=== PATIENT | female | born 1960 | race Caucasian/White ===

== ENCOUNTER → 2017-07-31 | Outpatient (CLI) | payer BC ==
--- NOTE | 2017-08-01 09:35 | CT ---
EXAMINATION TYPE: CT soft tissue neck w con DATE OF EXAM: 07/31/2017 HISTORY: Neck pain. COMPARISON: NONE CT DLP: 671 mGycm. Automated Exposure Control for Dose Reduction was Utilized. TECHNIQUE: CT scan of the neck is performed with IV Contrast, patient injected with 100ml mL of Omni paque 300, axial images are obtained, coronal and sagittal reformatted images are reviewed. FINDINGS: Airway: The false vocal cords appear abnormally thickened although symmetric. The true vocal cords ar e unremarkable. The piriform sinuses, vallecula, epiglottis, and uvula are unremarkable. The nasophar yngeal airway, supraglottic airway and infraglottic airway are patent. Prevertebral soft tissues are unremarkable with no focal fluid collection. Parotid/submandibular glands: Parotid and submandibular glands are symmetric although there is bilate ral fatty replacement/atrophy of the parotid glands nearly diffusely. Carotid/Vascular Structures: Minimal noncalcific atheromatous plaquing is seen of the left common car otid artery with less than 50% stenosis (nonhemodynamically significant. Carotid and vertebral arteri es are patent with no hemodynamically significant stenosis. Osseous Structures: Minimal mucosal thickening is seen within the right maxillary sinus. Remaining vi sualized paranasal sinuses and mastoid air cells are well aerated. Mild multilevel degenerative horan es of the cervical spine are seen. There is a grade 1 retrolisthesis of C5 on C6 and C6 on C7 with sm all posterior disc osteophyte complexes grating mild spinal canal stenosis. Lung apices demonstrate m inimal biapical pleural thickening but are otherwise unremarkable. Other: Scattered nonenlarged cervical chain lymph nodes are seen with the largest on the left in the submandibular region measuring 8 mm in short axis other than the jugulodigastric nodes. These all rem ain nonenlarged. IMPRESSION: 1. Symmetric thickening of the false vocal cords without focal mass or nodule. Direct visualization c ould be considered for further evaluation. No thickening of the true vocal cords or airway compromise . 2. Symmetric atrophy/fatty replacement of the parotid glands out of proportion for the patient's age. This can be seen in Sjogren's syndrome, chronic obstruction or other etiologies.
== END | disposition home or self-care (01) ==
LOC: RADCTMAIN 16:31
PROVIDERS: ATTEND Family Medicine
DX: R22.1 Localized swelling, mass and lump, neck (principal)
CPT/HCPCS: 70491; Q9967

== ENCOUNTER → 2023-03-23 | Outpatient (CLI) | payer BC, OTHER ==
--- NOTE | 2023-03-23 09:19 | CT ---
EXAMINATION TYPE: CT wrist RT wo con DATE OF EXAM: 03/23/2023 COMPARISON: None HISTORY: fx of radius CT DLP: [address] of the right wrist with reconstruction imaging. TECHNIQUE: Unenhanced CT of the right wrist was performed with bone and soft tissue window settings s ubmitted in the axial coronal and sagittal planes. At a separate workstation 3-D TR imaging was obta ined. FINDINGS: There is comminuted and partially impacted distal radial fracture with intra-articular extension. 2 m m dorsal displacement of the dorsal fracture fragment. Tiny ossific density is noted on the lateral p rojection within the dorsal carpal space and could reflect a tiny chip or avulsion fracture site of o rigin indeterminate. There is surrounding soft tissue swelling noted. No additional fractures are see n within the field of view. IMPRESSION: 1. There is comminuted and partially impacted distal radial fracture with intra-articular extension.
== END | disposition home or self-care (01) ==
LOC: RADCTMAIN 08:09
PROVIDERS: ATTEND Orthopaedic Surgery Hand Surgery
DX: S52.571A Other intraarticular fracture of lower end of right radius, initial encounter for closed fracture (principal); M25.531 Pain in right wrist

== ENCOUNTER → 2023-07-21 | Outpatient (CLI) | payer BC ==
--- NOTE | 2023-07-23 14:03 | PE ---
EXAMINATION TYPE: PET CT fusion skull to thigh DATE OF EXAM: 07/21/2023 COMPARISON: 07/31/2017 CT soft tissue neck Prior PET/CT: None at this location HISTORY: Lung cancer , head and neck neoplasm TECHNIQUE: Following the intravenous administration of 9.84 mCi of F-18 FDG, whole body images are p erformed from the skull base to the midthigh. Images are reviewed on the computer in the coronal, ax ial, and sagittal planes. Reconstructed rotating images are created on independent workstation and r eviewed on the computer. A localization and attenuation correction CT is performed in conjunction w ith the PET scan. DLP: 466.29 mGycm SCAN: Initial Blood glucose: 92 mg/dL Average Mediastinum SUV: 1.83 Average Liver SUV: 2.11 FINDINGS: NECK: There is intense uptake in the hypopharynx. Hypopharynx is asymmetric. SUV measures 18.25. There is a focus of radiotracer within the left jugulodigastric region. Intense uptake measuring SUV 12.98 is present. An additional more superior area of uptake is present in the jugulodigastric region , image 25, SUV 4.35. There is increased uptake adjacent to the left mandible. This may extend towards the hard palate. There is intense uptake within the posterior lateral focal cord level more intense on the right than the left. On the right the SUV level is 8.48. THORAX: There is focal uptake within the posterior left lung, image 88, SUV 6.13. Milder intermediate signal is within the posterior right lung consolidation with slightly elevated ROMERO V of 3.7. Inflammatory uptake appears to be adjacent to the tracheostomy site. ABDOMEN: There is a small focus of radiotracer within the hepatic flexure of the colon, image 138, ROMERO V 8.05. This is nonspecific. Neoplasm however is not excluded. PELVIS: No abnormal uptake OSSEOUS STRUCTURES: No abnormal uptake LOCALIZATION CT: There is irregular thickening through the tonsillar pillars and hypopharynx correspo nding to the uptake on PET scan. Small lymph nodes are in the neck bilaterally. COMPARISON: No recent comparison IMPRESSION: 1. Uptake within the posterior left lung with milder uptake within the consolidation of the left lung . Findings can be compatible with primary or metastatic cancer. 2. Intense uptake within the hypopharynx. Findings compatible with neoplasm. 3. At least 2 foci of increased uptake within the jugulodigastric region left neck suspicious for met astatic disease.
== END | disposition home or self-care (01) ==
LOC: RADPETMAIN 13:22
PROVIDERS: ATTEND Otolaryngology
DX: C32.8 Malignant neoplasm of overlapping sites of larynx (principal); C34.90 Malignant neoplasm of unspecified part of unspecified bronchus or lung; C76.0 Malignant neoplasm of head, face and neck
CPT/HCPCS: 78815; A9552

== ENCOUNTER → 2023-12-27 | Outpatient (CLI) | payer BC ==
--- NOTE | 2023-12-27 21:39 | FL ---
EXAMINATION TYPE: FL barium swallow w video DATE OF EXAM: 12/27/2023 CLINICAL HISTORY: 63-year-old female R13.10, C230.9, laryngeal cancer, Dysphagia. TECHNIQUE: Deglutition study is performed utilizing thin liquid barium, barium thick pudding, and ba rium coated cracker. Total fluoroscopy time 1 minute 3 seconds. Total images: None. Real-time fluoroscopy support was provided to speech pathology. Total DAP: 15 mGycm2. COMPARISON: None. FINDINGS: There is diminished epiglottic inversion. Tracheostomy cannula is present. Otherwise, the oral and pharyngeal phases show satisfactory initiation and propagation with all modal ities tested. Normal mastication is seen with solid modalities tested though the patient is edentulo us. There is no evidence of penetration or aspiration with any modality tested. No significant phar yngeal residue was appreciated. IMPRESSION: No penetration or aspiration. Tracheostomy cannula. Some reduced epiglottic inversion. Please refer to speech therapist notes for further details if necessary.
== END | disposition home or self-care (01) ==
LOC: RADFLMAIN 10:55
PROVIDERS: ATTEND Otolaryngology
DX: C32.9 Malignant neoplasm of larynx, unspecified (principal); R13.10 Dysphagia, unspecified
CPT/HCPCS: 74230

== ENCOUNTER → 2024-01-25 | Outpatient (CLI) | payer BC ==
--- NOTE | 2024-02-22 10:36 | PE ---
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 Images are reviewed on the computer in the coronal, axial, and sagittal planes. Reconstructed rotating images are created on independent workstation and reviewed on the computer. A non-contrast CT is performed in conjunction with the PET scan. Glucose level 91 mg/dL CT DLP: 626 mGycm, Automated exposure control for dose reduction was used. COMPARISON: CT None, PET/CT 07/21/2023, MRI: None FINDINGS: Mediastinal SUV mean is 2.0. Hepatic parenchyma SUV mean is 2.3. SKULL BASE AND NECK: * Decrease in uptake at the level of the larynx/vocal cords max SUV 12.2 previously 18.6. * Decrease in size and FDG activity of left neck lymph node now poorly visualized with FDG levels be low background. previously max SUV 13.8. * Uptake within the oropharynx and tongue max SUV 7.1, 16.9. * CHEST, MEDIASTINUM, AND HILAR REGION: New right lower lobe nodule measuring 28 x 18 mm max SUV 14.4. ABDOMEN AND PELVIS: * No suspicious radiotracer activity. * Nodular uptake of left adrenal gland without increased metabolic activity. MUSCULOSKELETAL STRUCTURES: * No suspicious radiotracer activity. * Focal uptake uptake along the right lateral thigh near the right hip arthroplasty measuring 21 x 1 7 mm with max SUV 5.[address]: Tracheostomy cannula with tip terminating in appropriate position. Moderate atherosclerosis of the arterial vasculature. Stable nodular thickening of the left adrenal gland. Large amount stool in the colon. Right hip arthroplasty appears intact. IMPRESSION: 1. Right lower lobe pulmonary nodule with increased FDG activity concerning for metastatic disease m easuring 28 x 18 mm. A new from prior. 2. Positive response to therapy in the neck at the level of the larynx and oropharynx with decreased FDG activity compared to prior, additionally there is decrease in size and FDG activity of left neck lymph node. Left neck lymph node no longer visualized. 3. Nonspecific uptake along the lateral aspect of the right thigh surgical bed. Findings could repre sent infectious/cavitary process and less likely metastatic disease.
== END | disposition home or self-care (01) ==
LOC: RADPETMAIN 10:45
PROVIDERS: ATTEND Internal Medicine Hematology & Oncology
DX: C76.0 Malignant neoplasm of head, face and neck (principal); R91.1 Solitary pulmonary nodule
CPT/HCPCS: 78815; A9552

== ENCOUNTER → 2024-02-24 | Outpatient (CLI) | payer BC ==
--- NOTE | 2024-03-11 21:58 | MR ---
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 COMPARISON: 01/30/2024 TECHNIQUE: Multi planar, multi sequence imaging was performed of the neck soft tissues. MR contrast: IV Contrast: 6.5 cc Gadavist FINDINGS: No focal asymmetric uptake within the level of the larynx. Tracheostomy cannula noted. Fin dings compatible with prior PET/CT images. No suspicious enhancement filling visualized at the oropha rynx. Several nonenlarged anterior chain lymph nodes are identified. There is no evidence to suggest a soft tissue mass. High T2 signal within the mastoid air cells right greater than left. The cervical vertebral bodies have preserved heights and alignment. Multilevel disc desiccation and anterior osteophytosis are present. The cervical spinal cord demonstrates a normal appearance. IMPRESSION: 1. Motion limited exam. No suspicious enhancement within the larynx. Findings compatible with prior PET/CT. She noted on prior PET/CT the whole body images demonstrate misregistration artifact with the patient moving her neck. On dedicated small [id number] head and neck 2. PET/CT images the uptake within the larynx appears physiologic without misregistration artifact. Continued surveillance with PET/CTs recommended. No lymphadenopathy identified. 3. Trace bilateral mastoid air cell effusions. [facility], , 03/11/2024 9:56 PM
== END | disposition home or self-care (01) ==
LOC: RADMRIMAIN 14:27
PROVIDERS: ATTEND Otolaryngology
DX: C32.9 Malignant neoplasm of larynx, unspecified
CPT/HCPCS: 70543

== ENCOUNTER → 2024-03-04 | Outpatient (CLI) | payer BC ==
--- NOTE | 2024-03-04 18:05 | CT ---
EXAMINATION TYPE: CT Chest wo ION protocol DATE OF EXAM: 03/04/2024 COMPARISON: PET CT 01/25/2024, 07/21/2023, MR neck 02/24/2024, CT abdomen and pelvis 10/01/2010. HISTORY: Abnormal findings right lung on prior exam CT DLP: 546 mGycm. Automated Exposure Control for Dose Reduction was Utilized. TECHNIQUE: CT scan of the thorax is performed without IV contrast. FINDINGS: LUNGS: There is no pleural effusion or pneumothorax seen. Increased size of spiculated right lower lo be pulmonary mass measuring 3.1 x 2.7 cm, previously 2.8 x 1.8 cm (series 4, which started 39). Demon strates linear extension to the pleural base. A right lower lobe bronchus terminates at the mass. Thi s is FDG avid on prior PET/CT. No other definitive suspicious pulmonary nodules identified. Linear sc arring and/or atelectasis within the left lung base. Punctate calcified granuloma along the right min or fissure. Tracheostomy cannula in appropriate position. MEDIASTINUM: Lack of IV contrast is noted to limit evaluation for mediastinal and especially hilar ad enopathy. There are no definitive greater than 1 cm hilar or mediastinal lymph nodes. Mild atheroscle rotic calcification of the aorta and its branches. Moderate coronary arterial calcification calcifica tions. No cardiomegaly or pericardial effusion is seen. OTHER: Similar stranding changes identified within the anterior lower neck soft tissues at the level of the vocal cords. Nonobstructive right renal 3 mm calculus. Stable thickening of the left adrenal g land with a 1.2 cm nodule identified which is likely benign due to stability from 2010. No aggressive osseous lesion. IMPRESSION: Increased size of right lower lobe spiculated 3.1 cm pulmonary mass. Highly suspicious for metastasis versus primary lung cancer until proven otherwise. [facility], , 03/04/2024 6:02 PM
== END | disposition home or self-care (01) ==
LOC: RADCTMAIN 15:32
PROVIDERS: ATTEND Internal Medicine Critical Care Medicine
DX: R91.8 Other nonspecific abnormal finding of lung field
CPT/HCPCS: 71250

== ENCOUNTER 2024-03-14 13:04 | Day surgery (SDC) | payer BC ==
[2024-03-12 15:44] VITALS: BMI 26.2
[~2024-03-14 13:04] MED LIST: HYDROmorphone 0.5 MG/0.5 ML SYRINGE IVP PRN; LACTATED RINGERS 1,000 ML IV SCH; LIDOCAINE 1% (10MG/ML) FOR IV START INTRADERMA PRN; MIDAZOLAM 2 MG/2 ML VIAL IV PRN; fentaNYL (PF) 50 MCG/ML 2 ML AMP IVP PRN
[2024-03-14 13:49] VITALS: TEMP 97
[2024-03-14] MEDS: LACTATED RINGERS 1,000 ML IV SCH (14:01)
[2024-03-14] MEDS: DEXAMETHASONE SOD PHOSPHATE 4 MG/ML 1 ML VIAL IV ONE (14:06)
[2024-03-14] MEDS: ONDANSETRON 4 MG/2 ML VIAL IVP ONE (14:06)
[2024-03-14] MEDS ORDERED: ROCURONIUM 10 MG/ML (5 ML VIAL) IV ONE (14:29)
[2024-03-14] MEDS ORDERED: PROPOFOL 10 MG/ML 20 ML VIAL IV ONE (14:29)
[2024-03-14] MEDS ORDERED: MIDAZOLAM 2 MG/2 ML VIAL ONE (14:29)
[2024-03-14] MEDS ORDERED: LIDOCAINE 1% INJ 10MG/ML (20 ML MDV) ONE (14:29)
[2024-03-14] MEDS ORDERED: GLYCOPYRROLATE 0.2 MG/ML 2 ML VIAL ONE (14:29)
[2024-03-14] MEDS ORDERED: NEOSTIGMINE 1 MG/ML 10 ML VIAL ONE (14:29)
[2024-03-14] MEDS ORDERED: fentaNYL (PF) 50 MCG/ML 2 ML AMP ONE (14:29)
--- NOTE | 2024-03-14 15:48 | P.PCN ---
Date of Procedure: 03/14/24 Description of Procedure: Operative Findings: Preoperative Diagnosis: Right lower lobe mass, 18 x 28 mm in size, PET avid Squamous cell carcinoma of the larynx, status post tracheostomy tube insertion Postoperative Diagnosis: Right lower lobe mass History of squamous cell carcinoma of the larynx, the patient is status post tracheostomy tube insertion Procedure(s) Performed: Flexible bronchoscopy Removal of tracheostomy tube, endotracheal intubation, reinsertion of the tracheostomy tube Robotic-assisted bronchoscopy and addition to radial ultrasound evaluation of the right lower lobe lung mass Robotic-assisted transbronchial needle aspirate, transbronchial biopsies, transbronchial brushing of the right upper lobe opacity in addition to a bronchioloalveolar lavage Anesthesia: TEA Surgeon: Je Green Estimated Blood Loss (ml): 0 Pathology: other Condition: stable Disposition: same day Operative Findings: A physical exam was performed. Informed consent was obtained from the patient after explaining all the risks (pneumothorax, life threatening bleeding, infection and adverse effects due to medications), benefits and alternatives to the procedure which the patient appeared to understand and so stated. The patient was connected to the monitoring devices. General anesthesia was induced and the patient was initially ventilated through tracheostomy tube by anesthesia. A final timeout was performed and the procedure confirmed by the attending bronchoscopist. The patient was subsequently intubated by #7.5 ET tube. The tracheostomy tube was gradually removed as the patient was being intu bated maintaining adequate oxygenation and ventilation. The orotracheal tube was secured in place. The bronchoscope was inserted and the airway examined. Airway examination was essentially within normal limits. The flexible bronchoscope was removed and the robotic bronchoscope was inserted. Registration was completed. I next guided the robotic bronchoscope using the navigation system into the right lower lobe posterior segment. Once in proper position, the bronchoscope was frozen. The radial EBUS probe was placed through the bronchoscope and confirmed abnormal u/s images vs normal lung. A needle was placed through the working channel and under fluoroscopic guidance, we sampled the area twice. We then used a cloud biopsy pattern with ultrasound confirmation for 1 additional passes with the needle. U/S evaluation was then used to reconfirm location. Forceps were next introduced through working channel and extended the appropriate distance and 3 transbronchial biopsies were performed using fluoroscopic guidance. The u/s probe was then reinserted to confirm location. When confirmed this process was repeated for a total of 8-10 transbronchial biopsies. Following that, under fluoroscopic guidance, a brush was directed to the right lower lobe. Under direct visualization, endobronchial brushing of the right lower lobe mass was done without any complications. 40ml of saline was then instilled into the area of the lesion. A total of 10 cc of bloody aspirate was obtained. The aspirate was bloody and ultimately declotted and based on that, the sample was discarded. Flex. bronchoscope was inserted and regular suctioning was done. At the completion of the procedure, no residual secretions or bloody material within the airway. The bronchoscope was removed. The patient was extubated and the ET tube was removed. Subsequently, the patient's tracheostomy tube was reinserted and the patient had a 7.[address] and the tube was secured without any complications. The flexible bronchoscope was inserted and adequate positioning of the tracheostomy tube was confirmed as the tip of the tracheostomy tube was in the trachea. OR for RECOMMENDATIONS: Await pathology and cytology results The referring physician will be alerted to the results when available. The patient was advised to follow up with the referring physician with the biop sy results Patient will be called with results.
--- NOTE | 2024-03-14 16:22 | XR ---
EXAMINATION TYPE: XR chest 1V DATE OF EXAM: 03/14/2024 4:12 PM CLINICAL INDICATION: Female, 63 years old with history of post bx; PHH COMPARISON: Chest radiographs from 03/01/2024 TECHNIQUE: XR chest 1V Frontal view of the chest. FINDINGS: Lungs/Pleura: There is a right pneumothorax. There is no evidence of pleural effusion, focal consolid ation, or left pneumothorax. Pulmonary vascularity: Unremarkable. Heart/mediastinum: Cardiomediastinal silhouette is unremarkable. Musculoskeletal: No acute osseous pathology. Other findings: None Lines/Tubes: Tracheostomy cannula tip projecting over the trachea. IMPRESSION: Small to moderate right pneumothorax. Findings communicated to Dr. Diana Grimes on 03/14/2024 4:[address] Jose Rizzo. [facility], , 03/14/2024 4:20 PM
[2024-03-14 16:34] VITALS: RESP 16
[2024-03-14] MEDS: HYDROcodone/APAP 10-325MG 1 EACH TAB PO ONE (18:00)
--- NOTE | 2024-03-14 18:03 | P.PCN ---
Date of Procedure: 03/14/24 Preoperative Diagnosis: Right-sided pneumothorax, post lung biopsy, iatrogenic Postoperative Diagnosis: Successful reexpansion of the right lung post Thora vent insertion Procedure(s) Performed: Thora vent catheter insertion Anesthesia: local Surgeon: Je Green Estimated Blood Loss (ml): 0 Pathology: other Condition: stable Disposition: same day Operative Findings: Robotic bronchoscopy of the right lower lobe mass was complicated by an iatrogenic pneumothorax. The patient had a 20 to 25% pneumothorax on the right, hemodynamically stable without causing any significant Desaturation. The patient was experiencing some limited right-sided chest wall pain Procedure was done under sterile techniques. Consent was obtained Right chest was cleaned using ChloraPrep. The anterior chest wall on the right, lateral to the sternal border between the second and third intercostal space was infiltrated with 1% lidocaine. Following that," 25-gauge needle was used to infiltrate and anesthetize the intercostal space and subcutaneous tissue. A small incision was done using a scalpel. Following that, a 13-gauge Thora vent catheter was inserted successfully in the right hemithorax over the trocar. The catheter was secured in place. Using a three-way stopcock, the right-sided pneumothorax was pumped out and evacuated. Subsequent chest x-ray showed reexpansion of right lung. The patient experienced some pleuritic chest pain post drainage of the right-sided pneumothorax. The patient remained hemodynamically stable. Pulse ox is above 95% on room air oxygen. The patient was seen back in the office on 03/15/2024 8:30 AM in the morning for a follow-up chest x-ray. The patient was discharged home. She has adequate pain medication including oxycodone at home and she will take it on an as-needed basis. She will monitor in recovery for another 30 minutes. The patient will be discharged home. She remains clinically and hemodynamically stable. The patient is to be followed up with me in the office early in the morning.
--- NOTE | 2024-03-14 18:07 | XR ---
EXAMINATION TYPE: XR chest 1V portable DATE OF EXAM: 03/14/2024 HISTORY: Shortness of breath. COMPARISON: Earlier in the day TECHNIQUE: Single view of the chest is submitted. FINDINGS: Right-sided pneumothorax with Apical pleural distance of 3.5 cm. Estimated pneumothorax of 25-30%. There is no evidence for focal infiltrate. The heart is stable. Hilar and mediastinal structures are within normal limits. Degenerative changes are seen of the dorsal spine. IMPRESSION: 1. Right-sided pneumothorax with Apical pleural distance of 3.5 cm. Estimated pneumothorax of 25-30% . [facility], , 03/14/2024 6:04 PM
--- NOTE | 2024-03-14 18:08 | XR ---
EXAMINATION TYPE: XR chest 1V portable DATE OF EXAM: 03/14/2024 HISTORY: Shortness of breath. COMPARISON: Same day study TECHNIQUE: Single view of the chest is submitted. FINDINGS: Right-sided pleural catheter is in place with resolution of previously noted right-sided pneumothorax . Tracheostomy tube is well-positioned. The lungs are clear. There is no evidence for focal infiltrate. The heart is stable. Hilar and mediastinal structures are within normal limits. Degenerative changes are seen of the dorsal spine. IMPRESSION: 1. Right-sided pleural catheter is in place with resolution of previously noted right-sided pneumoth orax. Tracheostomy tube is well-positioned. The lungs are clear. [facility], , 03/14/2024 6:06 PM
[2024-03-14 18:19] VITALS: BP 143/75; PULSE 83
--- NOTE | 2024-03-14 23:58 | FL ---
EXAMINATION TYPE: FL bronchoscopy DATE OF EXAM: 03/14/2024 3:33 PM COMPARISON: Pre Operative Images if available both CT/MRI or plain film CLINICAL INDICATION: Female, 63 years old with history of Abnormal Lung Finding; TECHNIQUE: FL bronchoscopy, multiple fluoroscopic images provided for procedure. Total fluoroscopy time: 52 seconds Total submitted images to PACS: 1 DAP: 3.3348 mGym2 Gycm2 uGym2 cGycm2 or equivalent. FINDINGS: ION bronchoscopy images demonstrate bronchoscope terminating in the lung. No immediate complications identified, no pneumothorax identified. IMPRESSION: 1. No evidence for intraoperative complication. 2. Please see the operative/procedural note for further details. [facility], , 03/14/2024 11:56 PM
== END 2024-03-14 18:38 | disposition home or self-care (01) ==
LOC: ORWHC2ENDO 13:04
PROVIDERS: ATTEND Internal Medicine Critical Care Medicine
DX: J93.9 Pneumothorax, unspecified (principal)
CPT/HCPCS: 31623; 31624; 31628; 31629; 71045; 87070; 87102; 87116; 87205; 87206; 87496; 87498; 87502; 87529; 87634; 87635; 87798; 88108; 88305; 88341; 88342

== ENCOUNTER → 2024-03-28 | Outpatient (CLI) | payer BC ==
--- NOTE | 2024-03-30 09:57 | PE ---
EXAMINATION TYPE: PET CT fusion skull to thigh DATE OF EXAM: 03/28/2024 COMPARISON: Chest CT 03/04/2024 Prior PET/CT: 01/25/2024 HISTORY: Supraglottis neoplasm TECHNIQUE: Following the intravenous administration of 11.2 mCi of F-18 FDG, whole body images are p erformed from the skull base to the midthigh. Images are reviewed on the computer in the coronal, ax ial, and sagittal planes. Reconstructed rotating images are created on independent workstation and r eviewed on the computer. A localization and attenuation correction CT is performed in conjunction w ith the PET scan. DLP: 700.4 mGycm SCAN: Subsequent Blood glucose: 128 mg/dL Average Mediastinum SUV: 2.58 Average Liver SUV: 3.4 FINDINGS: HEAD and NECK Dedicated: There is uptake within the larynx measuring 6.83, example image 46. Vocal co rds are closed at the time of exam. Right posterior lateral uptake is present within SUV of 9.06. Amanda ge 51. Some inflammatory changes noted adjacent to the tracheostomy tube. NECK: On the whole body imaging uptake appears to be greater on the right supraglottic region above the vocal cords. Example image 50, SUV 6.45. The right posterior lateral uptake measures 6.37, image 54. A previous punctate area of uptake in the right neck near the level of the supraglottic neoplasm is n ot evident on the current exam. THORAX: There is intense uptake within the posterior right lung mass with an SUV of 10.65, example im age 110. No uptake within mediastinal or hilar adenopathy evident. ABDOMEN: No suspicious uptake PELVIS: No suspicious uptake OSSEOUS STRUCTURES: No suspicious uptake LOCALIZATION CT: Tracheostomy tube is in the midline. There is asymmetry to the supraglottic region a t the patient's known neoplasm. The right lung mass posterior right lung relatively apparent measures 3.1 x 3.3 cm on mediastinal windows, series 3 image 110. Subtle minimal thickening along the adrenal glands is present. No suspicious uptake within these regions on PET scan. COMPARISON: Posterior right lung mass has enlarged the prior PET/CT. Intensity levels within the supr aglottic area are in a similar SUV range to prior exam. Previous punctate uptake in the right neck ap pears resolved from prior study. IMPRESSION: 1. Similar SUV range of the supraglottic neoplasm. 2. Enlarging right lung base mass. 3. Previous right neck punctate uptake not identified on current exam. [facility], Workstation: MARY LOU, 03/30/2024 9:55 AM
== END | disposition home or self-care (01) ==
LOC: RADPETMAIN 11:23
PROVIDERS: ATTEND Radiology Radiation Oncology
CPT/HCPCS: 78815

== ENCOUNTER → 2024-06-07 | Outpatient (CLI) | payer BC ==
--- NOTE | 2024-06-07 12:05 | CT ---
EXAMINATION TYPE: CT neck chest w con DATE OF EXAM: 06/07/2024 11:35 AM COMPARISON: CT chest dated 03/04/[address] neck dated 07/31/2017 CLINICAL INDICATION: Female, 63 years old with history of C78.01, C77.0, C32.1; PHH, THROAT CA/ LUNG NODULE TECHNIQUE: CT scan of the neck and chest is performed following with IV Contrast, patient injected with 100 mL o f Isovue 300. Axial images are obtained, coronal and sagittal reformatted images are reviewed. CT DLP: 683.[address] CTDI: mGy Automated exposure control for dose reduction was used. FINDINGS: CT chest: The spiculated right lower lobe lung mass has decreased in size from 2.7 x 3.1 cm to approximately 2. 5 x 1.3 cm. There is a thick bandlike density extending from the mass to the posterior lung pleura wh ere there is a rounded 16 mm pleural-based mass which has increased in size in the interval. The pleu ral based mass possibly represents round atelectasis but neoplasm is not excluded. The left lung remains clear. There is no pleural effusion or pneumothorax. The great vessels of the chest are normal. There is no mediastinal, hilar or axillary adenopathy. There is a tracheostomy tube unchanged in position. Structures no focal destructive osseous lesions are seen. CT NECK: FINDINGS: There is a tracheostomy tube in place. There are no supraclavicular lymph nodes. There is no thyroid mass or gross enlargement. There is ill-defined abnormal soft tissue density in the region of the true and false vocal cords. Th e soft tissue density extends suprahyoid neck at the base of the oropharynx where there is a mass of approximately 3.9 x 3.2 cm. There is near occlusion of the airway. The mass involves the epiglottis, aryepiglottic folds, piriform sinuses and vallecula which are not well defined. The parotid and submandibular glands are normal and symmetric without focal mass or gross enlargement . There is no pharyngeal or parapharyngeal soft tissue mass or enhancement The great vessels of the neck are normal. There are no enlarged lymph nodes There is no soft tissue swelling, inflammation or abscess. IMPRESSION: 1. Ill-defined mass involving the larynx extending into the suprahyoid neck at the base of the tongue as described above. 2. No abscess or adenopathy. 3. Right lower lobe lung mass which has decreased in size in the interval. 4. Increasing adjacent pleural base mass in the right lung base posteriorly consistent with round ate lectasis or possibly enlarging neoplasm. [facility], , 06/07/2024 12:03 PM
== END | disposition home or self-care (01) ==
LOC: RADCTMAIN 11:10
PROVIDERS: ATTEND Radiology Radiation Oncology
DX: C78.01 Secondary malignant neoplasm of right lung (principal); C77.0 Secondary and unspecified malignant neoplasm of lymph nodes of head, face and neck; C32.1 Malignant neoplasm of supraglottis; R91.8 Other nonspecific abnormal finding of lung field
CPT/HCPCS: 70491; 71260; Q9967

== ENCOUNTER 2024-09-02 10:01 | Day surgery (SDC) | payer BC ==
[~2024-09-02 10:01] MED LIST changes: +ACETAMINOPHEN TAB 500 MG TAB PO PRN; -HYDROmorphone 0.5 MG/0.5 ML SYRINGE IVP PRN; -LACTATED RINGERS 1,000 ML IV SCH; -LIDOCAINE 1% (10MG/ML) FOR IV START INTRADERMA PRN; +Pre Op ABX Message 1 EACH MISC MISCELLANE ONE; -fentaNYL (PF) 50 MCG/ML 2 ML AMP IVP PRN
[2024-09-02] MEDS: IV FLUID CONTINUATION 1,000 ML IV ONE (10:16)
[2024-09-02 10:37] VITALS: RESP 16; TEMP 97.4
[2024-09-02] MEDS: ONDANSETRON 4 MG/2 ML VIAL IVP ONE (10:40)
[2024-09-02] MEDS: HEPARIN SODIUM,PORCINE 5,000 UNIT/ML 1 ML VIAL SQ PRN (10:40)
[2024-09-02] MEDS: DEXAMETHASONE SOD PHOSPHATE 4 MG/ML 1 ML VIAL IV ONE (10:40)
[2024-09-02] MEDS: LACTATED RINGERS 1,000 ML IV SCH (10:40)
[2024-09-02] MEDS: SCOPOLAMINE 1 MG/72 HR PATCH TRANSDERM ONE (10:40)
--- NOTE | 2024-09-02 11:23 | P.GSHP ---
History of Present Illness H&P Date: 09/02/24 Chief Complaint: Metastatic cancer 63-year-old female here today for Port-A-Cath placement. Patient with history of previous head neck cancer and per the patient it sounds like this has metastasized to the lung and also to the left adrenal gland. She is undergoing immunotherapy. Here because of requiring port for future treatments. Patient has a tracheostomy in place however did not have a laryngectomy. Past Medical History Past Medical History: Cancer, GERD/Reflux, Osteoarthritis (OA) Additional Past Medical History / Comment(s): throat cancer, trach ,lung radiation History of Any Multi-Drug Resistant Organisms: None Reported Past Surgical History: Hysterectomy, Joint Replacement Additional Past Surgical History / Comment(s): right hip replacement. trach placed Past Anesthesia/Blood Transfusion Reactions: No Reported Reaction Smoking Status: Current some day smoker - Past Family History Father Family Medical History: No Reported History Medications and Allergies Home Medications Medication Instructions Recorded Confirmed Type Cariprazine HCl [Vraylar] 3 mg PO DAILY 03/12/24 09/02/24 History PARoxetine HCL [Paxil] 40 mg PO DAILY 03/12/24 09/02/24 History HYDROcodone/APAP 10-325MG [[place] 1 tab PO Q8H PRN 08/30/24 09/02/24 History 10-325] Allergies Allergy/AdvReac Type Severity Reaction Status Date / Time No Known Allergies Allergy Verified 09/02/24 10:34 Surgical - Exam Vital Signs Temp Pulse Resp Pulse Ox 97.4 F L 99 16 100 09/02/24 10:36 09/02/24 10:36 09/02/24 10:36 09/02/24 10:36 Physical exam: General: Well-developed, well-nourished HEENT: Normocephalic, sclerae nonicteric, nonballoon trach in place Abdomen: Nontender, nondistended Extremities: No edema Neuro: Alert and oriented Assessment and Plan (1) Squamous cell carcinoma of larynx Narrative/Plan: 63-year-old female with metastatic head neck cancer. Will proceed with Port-A-Cath placement at this time. Risks of bleeding, infection, DVT, pneumothorax, catheter malfunction, anesthesia related complications were disc ussed. The patient understands and wishes to proceed. Current Visit: No Status: Acute Code(s): C32.9 - MALIGNANT NEOPLASM OF LARYNX, UNSPECIFIED SNOMED Code(s): 359506354
[2024-09-02] MEDS ORDERED: PROPOFOL 10 MG/ML 20 ML VIAL IV ONE (11:42)
[2024-09-02] MEDS ORDERED: fentaNYL (PF) 50 MCG/ML 2 ML AMP ONE (11:42)
[2024-09-02] MEDS ORDERED: MIDAZOLAM 2 MG/2 ML VIAL ONE (11:42)
[2024-09-02] MEDS ORDERED: LIDOCAINE 1% INJ 10MG/ML (20 ML MDV) ONE (11:42)
[2024-09-02] MEDS ORDERED: PHENYLEPHRINE 10 MG/ML VIAL ONE (11:42)
[2024-09-02] MEDS: SODIUM CHLORIDE 0.9% 50 ML with ceFAZolin 2,000 MG IV ONE (11:47)
--- NOTE | 2024-09-02 12:49 | FL ---
EXAMINATION TYPE: FL guided central line placemt DATE OF EXAM: 09/02/2024 12:39 PM COMPARISON: Pre Operative Images if available both CT/MRI or plain film CLINICAL INDICATION: Female, 63 years old with history of PORTACATH PLACEMENT; TECHNIQUE: FL guided central line placemt, multiple fluoroscopic images provided for procedure. DAP: 0.2175 mGym2 Gycm2 uGym2 cGycm2 or equivalent. FINDINGS: Fluoroscopic imaging for Port-A-Cath insertion no evidence for pneumothorax. Multilevel degeneration changes of the spine. IMPRESSION: 1. No evidence for intraoperative complication. 2. Please see the operative/procedural note for further details. [facility], , 09/02/2024 12:47 PM
[2024-09-02] MEDS ORDERED: NALOXONE 0.4 MG/ML 1 ML VIAL IV PRN (12:58)
[2024-09-02] MEDS: IV FLUID CONTINUATION 800 ML IV ONE (13:01)
--- NOTE | 2024-09-02 13:02 | P.OP ---
Date of Procedure: 09/02/24 Procedure(s) Performed: PREOPERATIVE DIAGNOSIS: Head neck cancer metastatic POSTOPERATIVE DIAGNOSIS: Same PROCEDURE: Port-A-Cath placement with fluoroscopic and ultrasound guidance SURGEON: Antwan EBL: 5 cc ANESTHESIA: General COMPLICATIONS: None OPERATIVE PROCEDURE: Patient was brought and placed on the operative table in the supine position. The patient's nonballoon tracheostomy catheter was removed and a 6 [place]ovan endotracheal tube was placed by anesthesia. At the completion of the procedure the tube was withdrawn and the previous tracheostomy catheter was replaced. The patient was placed under general anesthesia at that time. The chest and neck were prepped and draped in usual sterile fashion. The ultrasound probe was used to identify the location of the right internal jugular vein. The skin was localized with lidocaine. The Seldinger needle was advanced into the IJ under ultrasound guidance. The wire was advanced through the needle under fluoroscopic guidance into the superior vena cava. On fluoroscopy the patient's endotracheal tube appeared to be in the right mainstem. Left lung appeared somewhat collapsed. Spoke with anesthesiologist regarding this and they advised ventilating on 1 lung since it was such a short procedure and the patient was tolerating the anesthesia well. A port pocket was created in the right infraclavicular location. The catheter was tunneled from the wire entrance site to the port pocket. The port was then connected to the catheter. The dilator introducer was threaded over the guidewire. The guidewire and dilator were then removed. The catheter was advanced through the introducer and introducer was then removed. The tip was seen to be in the right atrial junction via fluoroscopy. A picture of the radiograph showing the tip of the catheter was taken. Port was flushed with both saline and a Hep-Lock solution. There was good flow both in and out of the port. The port was sutured in underlying tissues using 3-0 silk sutures. The subcutaneous tissues were reapproximated using 3-0 Vicryl sutures and the skin at both locations using 4-0 Monocryl sutures. Skin glue and sterile dressings then applied. The endotracheal tube was withdrawn and the patient was kept on positive pressure ventilation to reinsufflated that left lung. No issues during that. The endotracheal tube was then removed and the patient's tracheostomy catheter was replaced. DISPOSITION: Stable to recovery room
[2024-09-02] MEDS: HYDROmorphone 0.5 MG/0.5 ML SYRINGE IVP PRN (13:09)
--- NOTE | 2024-09-02 13:40 | XR ---
EXAMINATION TYPE: XR chest 1V confirm line plcmt DATE OF EXAM: 09/02/2024 1:20 PM COMPARISON: Chest radiographs from03/14/2024 CLINICAL INDICATION: Female, 63 years old with history of Check Line; TECHNIQUE: XR chest 1V confirm line plcmt Frontal view of the chest. FINDINGS: Lungs/Pleura: There is no evidence of pleural effusion, focal consolidation, or pneumothorax. Pulmonary vascularity: Unremarkable. Heart/mediastinum: Cardiomediastinal silhouette is unremarkable. Musculoskeletal: No acute osseous pathology. Other findings: None Lines/Tubes: Tracheostomy cannula tip projecting over the trachea. [id number] projecting over the right hemithorax with distal tip at the cavoatrial junction. IMPRESSION: No acute cardiopulmonary disease/process. [facility], , 09/02/2024 1:38 PM
[2024-09-02 13:51] VITALS: BP 130/84; PULSE 78
== END 2024-09-02 14:09 | disposition home or self-care (01) ==
LOC: OR 10:01
PROVIDERS: ATTEND Surgery
DX: C79.89 Secondary malignant neoplasm of other specified sites (principal); M19.90 Unspecified osteoarthritis, unspecified site; F17.200 Nicotine dependence, unspecified, uncomplicated; Z90.710 Acquired absence of both cervix and uterus; Z93.0 Tracheostomy status; Z96.641 Presence of right artificial hip joint
CPT/HCPCS: 77001; 36561; C1788; J2250; J1644; J1100; J2405; J0690; J2003; J3010; J1642; J2704; J1171; J2371

== ENCOUNTER → 2024-11-14 | Outpatient (CLI) | payer BC ==
--- NOTE | 2024-11-17 12:39 | PE ---
EXAMINATION TYPE: PET CT fusion skull to thigh DATE OF EXAM: 11/14/2024 CLINICAL INDICATION:Female, 63 years old with history of C32.1 SUPRAGLOTTIS CANCER; TECHNIQUE: Following the intravenous administration of 11.29 mCi of F-18 FDG, whole body images are performed from the skull vertex to the midthigh. Images are reviewed on the computer in the coronal , axial, and sagittal planes. Reconstructed rotating images are created on independent workstation a nd reviewed on the computer. A non-contrast CT is performed in conjunction with the PET scan. Gluco se level 106 mg/dL CT DLP: 572.3 mGycm, Automated exposure control for dose reduction was used. COMPARISON: CT 06/07/2024, 03/04/2024, 07/31/2017, PET/CT 03/28/2024, 02/22/2024, 07/21/2023, MRI: 02/24/20 24 FINDINGS: Mediastinal SUV mean is 2.3. Hepatic parenchyma SUV mean is 3.1. SKULL BASE AND NECK: Ill-defined mass involving the larynx/vocal cords extending into the suprahyoid neck. This has mildly decreased in size from prior CT and demonstrates a maximum SUV of 7.8. CHEST, MEDIASTINUM, AND HILAR REGION: Previously seen right lower lobe pulmonary mass is not well visualized with some stranding in region. No suspicious FDG activity in this region. New posterior right upper lobe 1.1 cm nodular opacity with a max SUV of 3.1. New right upper lobe 0.6 cm nodular opacity with a maximum SUV of 2.3. New peripheral right lower lobe subpleural nodular opacity measuring up to 0.8 cm with a max SUV of 3 .5. New medial right upper lobe 0.9 cm pulmonary nodule with a maximum SUV of 8.6. ABDOMEN AND PELVIS: Increased size with heterogenous bulky appearance of both kidneys. There is intense radiotracer activ ity within both kidneys. The right demonstrates a maximum SUV of 30.2. The left demonstrates a maximu m SUV of 22.3. Development of left periaortic enlarged lymph node/mass measuring up to 6.3 cm with a maximum SUV of 20.9. Enlarged left periaortic FDG avid 1.3 cm lymph node with a maximum SUV of 3.6. MUSCULOSKELETAL STRUCTURES: No suspicious radiotracer activity. OTHER CT: Bilateral carotid bulb calcifications. Right anterior chest wall IJ approach Mediport megan ter distal tip terminating at the brachiocephalic confluence. Tracheostomy cannula demonstrated. Mild atherosclerotic calcification of the aorta and its branches. Mild coronary arterial calcifications. Centrilobular emphysematous changes. Bilateral lower lobe linear atelectasis. Postsurgical changes fr om right hip arthroplasty. Uterus is surgically absent. Nonobstructing right renal 3 mm calculus. IMPRESSION: 1. FDG avid ill-defined laryngeal mass extending into the supraglottic region. Consistent with malig nik. This is increased in size from prior PET/CT but mildly decreased in size from most recent CT 1 08/08/2023. 2. Previously seen right lower lobe pulmonary mass is no longer visualized however there is developm ent of a few FDG avid pulmonary nodules concerning for metastasis and/or infectious/inflammatory nodu les. 3. Development of left periaortic FDG avid lymphadenopathy/mass concerning for metastatic disease. 4. Development of enlarged bilateral kidneys with intense FDG radiotracer uptake. This raises concer n for possible metastasis versus other etiologies. Recommend further evaluation with MR abdomen with IV contrast (renal mass protocol). [facility], , 11/17/2024 12:37 PM
== END | disposition home or self-care (01) ==
LOC: RADPETMAIN 14:53
PROVIDERS: ATTEND Radiology Radiation Oncology
DX: C32.1 Malignant neoplasm of supraglottis (principal); R91.8 Other nonspecific abnormal finding of lung field
CPT/HCPCS: 78815; A9552